=== PATIENT | female | born 1985 ===

== ENCOUNTER 2022-04-21 14:25 | Emergency (ER) | payer MEDICAID, OTHER ==
[~2022-04-21] VITALS: Ht 154.9 cm; Wt 62.6 kg
[2022-04-21 15:24] VITALS: BP 141/95
[2022-04-21 16:03] LABS: Urine Bacteria FEW /hpf (None Seen); Urine Blood Negative /uL (Negative); Urine Specific Gravity 1.007 (1.001-1.035); Urine WBC 3 /hpf (0 - 5)
[2022-04-21] MEDS ORDERED: NAPR500T31 PO (16:19)
[2022-04-21] MEDS ORDERED: BACDST PO (16:19)
== END 2022-04-21 16:28 | disposition home or self-care (01) ==
LOC: ER 14:25
DX: N39.0 Urinary tract infection, site not specified (principal); N83.202 Unspecified ovarian cyst, left side; Z79.899 Other long term (current) drug therapy
CPT/HCPCS: 76856; 81001; 81025